=== PATIENT | male | born 1970 | race Caucasian/White ===

== ENCOUNTER → 2016-04-26 | Day surgery (SDC) | payer OTHER ==
[~2016-04-26] MED LIST: ACETAMINOPHEN/HYDROcodone 325 MG/5 MG TAB ONE; BUPIVACAINE HCL PF 0.75% 30 ML VIAL ONE; LACTATED RINGER'S 1000 ML INJ 1,000 ML ONE; LIDOCAINE 1.5%/EPINEPHrine 1:200,000 PF SOLN 30 ML AMP ONE; MIDAZOLAM HCL 5 MG/ML VIAL (1 ML) ONE; ONDANSETRON HCL 4 MG/2 ML VIAL IV PUSH ONE; PROPOFOL 500 MG/50 ML BTL IV ONE; ceFAZolin INJ 1,000 MG VIAL ONE
--- NOTE | 2016-04-27 17:32 | MP ---
cc: RAGHAV BECKER DATE OF SURGERY: 04/26/2016 PREOPERATIVE DIAGNOSIS Left ankle Achilles tendon rupture. POSTOPERATIVE DIAGNOSIS Left ankle Achilles tendon rupture. SURGEON Dr. Raghav Becker SHAPING MACHINE OPERATOR MORGAN Silva The surgical procedure was assisted by my Advanced Registered Nurse Practitioner. My SLD TEACHER presence was necessary throughout this case for the manipulation and positioning of the surgical extremity. My SLD TEACHER was assisting me throughout the duration of this procedure. The skill set of an Advanced Registered Nurse Practitioner was medically necessary to complete this procedure. During the surgical case, the information technology professor was working at the back table and the Advanced Registered Nurse Practitioner was directly assisting me. PROCEDURE Left ankle open Achilles tendon repair. ESTIMATED BLOOD LOSS Minimal. ANESTHESIA General and regional. TOURNIQUET TIME 21 minutes at 250 mmHg pressure. JUSTIFICATION FOR PROCEDURE The patient is a 45-year-old man who was found to have full-thickness Achilles tendon rupture. We had a preoperative MRI which confirmed the diagnosis. The patient understood the risks and benefits of surgical management. He was informed of the MRI results preoperatively. The patient wanted to move forward with surgical management. See the office notes for further details. DETAILS OF PROCEDURE The patient was brought to the holding area. The patient had regional anesthesia performed by the anesthesiologist. The patient was then brought back to the operative theatre. General anesthesia was administered. He was placed into a prone position with no undue pressure of the abdominal region. The left lower extremity is prepped and draped in the usual sterile fashion. The leg was exsanguinated. The tourniquet was raised. A standard posterior incision was made. This was made just off to the medial side of the midline posterior. We readily identified the full-thickness tear of the Achilles tendon. The paratenon was reflected. The wound was irrigated. We then proceeded with repair of the tendon by placing four individual #2 FiberWires in baseball stitch fashion such that two of the FiberWires were distal and two of them were proximal which led to four ends. We then tied these ends to themselves and then tied those sutures to themselves again. This created an excellent repair with no undue tension. The tourniquet was released. Hemostasis was achieved. The wound was thoroughly irrigated. We then closed the paratenon over the Achilles tendon with 2-0 Vicryl followed by 2-0 Vicryl for skin and 3-0 nylon for skin. The patient was placed into a posterior splint with slight equinus. The postoperative plan is non-weightbearing and follow standard Achilles tendon repair protocol. MD MENG Tom/ILIR /2:04 PM /5:22 PM
== END | disposition home or self-care (01) ==
LOC: ESDC 11:26
PROVIDERS: ATTEND Orthopaedic Surgery
DX: S86.012A Strain of left Achilles tendon, initial encounter (principal)
CPT/HCPCS: 01472; 27650; 64450; J0690; J2250; J2405; J3010; J7120